=== PATIENT | female | born 2000 | race Caucasian/White ===

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

== ENCOUNTER 2022-06-23 17:30 | Emergency (ER) | payer MEDICAID ==
[~2022-06-23] VITALS: Ht 149.9 cm; Wt 73.9 kg
[2022-06-23 17:41] VITALS: BP 105/65
--- NOTE | 2022-06-23 17:49 | NUR ---
ROCAEL LI AT TRIAGE FOR EVAL
[2022-06-23] MEDS ORDERED: BACITRACIN OINT 500 UNITS/GM PKT TP ONE (17:50)
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
[2022-06-23] MEDS ORDERED: AMOX-999 PO (17:58)
[2022-06-23] MEDS ORDERED: BACI1PAC6 TP (17:58)
--- NOTE | 2022-06-23 18:53 | NUR ---
NON ADHERENT APPLIED TO WOUND.
[2022-06-23 18:56] VITALS: BP 104/62
--- NOTE | 2022-06-23 18:56 | NUR ---
Patient discharged with v/s stable. Written and verbal after care instructions FOR HUMAN BITE given and explained. Patient alert, oriented and verbalized understanding of instructions. Ambulatory with steady gait. All questions addressed prior to discharge. ID band removed. Patient advised to follow up with PMD. Rx of BACITRACIN AND AMOXICILLIN given. Opportunity to ask questions provided and answered.
== END 2022-06-23 18:56 | disposition home or self-care (01) ==
LOC: MED 17:30
DX: S61.552A Open bite of left wrist, initial encounter (principal); Z79.899 Other long term (current) drug therapy; Z79.2 Long term (current) use of antibiotics; W50.3XXA Accidental bite by another person, initial encounter; Y93.89 Activity, other specified; Y92.89 Other specified places as the place of occurrence of the external cause; Y99.8 Other external cause status
CPT/HCPCS: 90471; 90715; 99283